=== PATIENT | female | born 1950 | race African-American/Black ===

== ENCOUNTER 2025-03-08 20:39 | Inpatient (IN) | payer MEDICARE, OTHER ==
[~2025-03-08] VITALS: Ht 157.5 cm; Wt 72.6 kg
[2025-03-08 21:41] LABS: CALCIUM, SERUM 9.3 mg/dL (8.5-10.1); CARBON DIOXIDE 26 mmol/L (21-32); CHLORIDE 104 mmol/L (98-107); CREATININE 1.4 mg/dL (0.6-1.3); GLUCOSE 99 mg/dL (74-106); POTASSIUM 4.5 mmol/L (3.5-5.1); SODIUM SERUM 139 mmol/L (136-145); UREA NITROGEN, BLOOD 18 mg/dL (7-18)
[2025-03-08 21:42] LABS: BASOPHILS # (AUTO) 0.1 K/uL (0.0-0.2); BASOPHILS % (AUTO) 1.9 % (0.0-2.0); EOSINOPHILS # (AUTO) 1.2 K/uL (0.0-0.7); EOSINOPHILS % (AUTO) 15.4 % (0.0-6.0); HEMATOCRIT 31 % (33-45); HEMOGLOBIN 9.5 g/dL (11.5-14.8); LYMPHOCYTES % (AUTO) 12.8 % (20.0-44.0); MEAN CORPUSCULAR HEMOGLOBIN 20 PG (26.0-33.0); MEAN CORPUSCULAR HGB CONC 30 g/dl (31.0-36.0); MEAN CORPUSCULAR VOLUME 65 fL (82-100); NEUTROPHILS # (AUTO) 4.4 K/uL (1.8-8.9); NEUTROPHILS % (AUTO) 56.9 % (43.0-81.0); PLATELET COUNT (AUTO) 341 K/uL (150-450); RED BLOOD CELL COUNT(AUTO) 4.82 MIL/uL (4.0-5.2); RED CELL DISTRIBUTION WIDTH 22.5 % (11.5-15.0); WHITE BLOOD COUNT (AUTO) 7.7 K/uL (4.3-11.0)
[2025-03-08 21:54] LABS: NT-PRO BNP 1018 pg/mL (0-125)
[2025-03-08 21:55] LABS: LACTIC ACID 4.6 mmol/L (0.4-2.0)
[2025-03-08] MEDS: VANCOMYCIN 1 GM in IV D5W 250 ML IV ONE (22:00)
[2025-03-08] MEDS: PIPERACILLIN /TAZOBACTAM 3.375 G in IV D5W 50 ML IV ONE (22:00)
[2025-03-08 22:06] LABS: BAND % (MANUAL) 0 % (0.0-5.0); NEUTROPHILS % (MANUAL) 73 (42-76)
[2025-03-08 22:07] LABS: BASOPHILS % (MANUAL) 0 % (0.0-2.0); EOSINOPHILS % (MANUAL) 12 % (0-4); LYMPHOCYTES % (MANUAL) 15 % (16-48); METAMYELOCYTES % 0 % (0-0); MONOCYTES % (MANUAL) 10 % (0-11.0)
[2025-03-08 22:09] LABS: ANISOCYTOSIS 3+; OVALOCYTES 1+; PLATELET ESTIMATE ADEQUATE
[2025-03-08] MEDS ORDERED: IOHEXOL-350 100 ML VIAL IV ONE (22:26)
[2025-03-08] MEDS ORDERED: CT SWABBABLE VALVE TRANS SET 1 EA INFUS.SET MC ONE (22:26)
[2025-03-08] MEDS ORDERED: IV NS 0.9% 250 ML IV ONE (22:26)
[2025-03-08 22:30] LABS: ABG BASE EXCESS -3.2 mmol/L (-2.0-3.0); ABG OXYGEN SATURATION 87.5 % (94.0-98.0); ABG PCO2 36.7 mmHg (32.0-45.0); ABG PH 7.384 (7.350-7.450); ABG PO2 58.5 mmHg (83.0-108.0); ABG TOTAL HEMOGLOBIN 10.4 G/dL (12.0-16.0); COHb 0.2 % (0.5-1.5); MetHb 0.6 % (0.0-1.5); O2Hb 86.8 % (94.0-97.0); SITE, ABG RIGHT BRACHIAL
[2025-03-08] MEDS: IV NS 0.9% 1,000 ML BAG IV ONE (22:30)
[2025-03-08] MEDS: ENOXAPARIN SODIUM 60 MG/0.6 ML DISP.SYRIN SQ ONE (22:30)
[2025-03-08] MEDS: ASPIRIN 300 MG/SUPP.RECT RC ONE (22:30)
[2025-03-09] MEDS ORDERED: ONDANSETRON HCL/PF 4 MG/2 ML VIAL IVP PRN
[2025-03-09] MEDS ORDERED: Z GUARD REMEDY 4 OZ OINT TP PRN
[2025-03-09 00:41] LABS: BILIRUBIN,DIRECT 0.2 mg/dL (0.0-0.2); BILIRUBIN,TOTAL 0.7 mg/dL (0.2-1.0)
[2025-03-09] MEDS ORDERED: ENOXAPARIN SODIUM 80 MG/0.8 ML DISP.SYRIN SQ ONE (00:55)
[2025-03-09 00:56] LABS: LACTIC ACID REFLEX 6.2 mmol/L (0.4-1.9)
[2025-03-09] MEDS ORDERED: ASPIRIN 300 MG/SUPP.RECT RC ONE (00:56)
[2025-03-09] MEDS ORDERED: FUROSEMIDE 40 MG TABLET PO ONE (01:00)
[2025-03-09 04:00] VITALS: BP 126/85; TEMP 97.7
[2025-03-09] MEDS ORDERED: FAMO40TA7 PO (07:55)
[2025-03-09] MEDS ORDERED: ATOR20TA PO (07:55)
[2025-03-09] MEDS ORDERED: ASPI-1169 PO (07:55)
[2025-03-09] MEDS ORDERED: OXYC5TAB3 PO (07:55)
[2025-03-09] MEDS ORDERED: ALBU18HF2 IH (07:55)
[2025-03-09] MEDS ORDERED: INSU100I43 SQ ×2 (07:55)
[2025-03-09] MEDS ORDERED: MYRBETRIQ PO (07:55)
[2025-03-09] MEDS ORDERED: MORP15TA PO (07:55)
[2025-03-09] MEDS ORDERED: LACT10SO69 PO (07:55)
[2025-03-09 08:00] VITALS: BP 112/75; TEMP 98.2
[2025-03-09] MEDS: ASPIRIN EC 81 MG TABLET.DR PO SCH (09:18)
[2025-03-09] MEDS: PANTOPRAZOLE 40 MG TABLET.DR PO SCH (09:18)
[2025-03-09] MEDS: ENOXAPARIN SODIUM 80 MG/0.8 ML DISP.SYRIN SQ SCH (09:21)
[2025-03-09] MEDS ORDERED: FUROSEMIDE 80 MG TABLET PO SCH (10:00)
[2025-03-09] MEDS ORDERED: NALOXONE HCL 0.4 MG/ML AMPUL IV PRN (11:30)
[2025-03-09] MEDS: FUROSEMIDE 40 MG/4 ML VIAL IV SCH (11:35)
[2025-03-09] MEDS: BLOOD SUGAR DIAGNOSTIC 1 EACH STRIP IN SCH (11:47)
[2025-03-09 11:55] LABS: BASOPHILS # (AUTO) 0.1 K/uL (0.0-0.2); BASOPHILS % (AUTO) 1.1 % (0.0-2.0); EOSINOPHILS % (AUTO) 12.7 % (0.0-6.0); HEMATOCRIT 30 % (33-45); HEMOGLOBIN 9.1 g/dL (11.5-14.8); LYMPHOCYTES # (AUTO) 0.5 K/uL (0.8-4.8); LYMPHOCYTES % (AUTO) 6.6 % (20.0-44.0); MEAN CORPUSCULAR HEMOGLOBIN 20 PG (26.0-33.0); MEAN CORPUSCULAR HGB CONC 30 g/dl (31.0-36.0); MEAN CORPUSCULAR VOLUME 65 fL (82-100); MONOCYTES # (AUTO) 0.9 K/uL (0.1-1.30); MONOCYTES % (AUTO) 11.1 % (2.0-12.0); NEUTROPHILS # (AUTO) 5.5 K/uL (1.8-8.9); NEUTROPHILS % (AUTO) 68.5 % (43.0-81.0); PLATELET COUNT (AUTO) 285 K/uL (150-450); RED BLOOD CELL COUNT(AUTO) 4.64 MIL/uL (4.0-5.2); RED CELL DISTRIBUTION WIDTH 22.7 % (11.5-15.0)
[2025-03-09 12:00] VITALS: BP 121/79; TEMP 98
[2025-03-09] MEDS ORDERED: DEXTROSE 50%-WATER 50 ML DISP.SYRIN IV PRN (12:00)
[2025-03-09 12:02] LABS: APPEARANCE,URINE CLEAR (CLEAR); BILIRUBIN,URINE NEGATIVE (NEGATIVE); BLOOD, URINE NEGATIVE Ery/uL (NEGATIVE); COLOR,URINE YELLOW (YELLOW); KETONES,URINE NEGATIVE (NEGATIVE); LEUKOCYTE ESTERASE ,URINE NEGATIVE (NEGATIVE); NITRITE, URINE NEGATIVE (NEGATIVE); PROTEIN,URINE NEGATIVE (NEGATIVE); UGLUCOSE NEGATIVE (NEGATIVE)
[2025-03-09] MEDS: INSULIN REGULAR, HUMAN 100 UNIT/ML 3 ML VIAL SQ PRN (12:04)
[2025-03-09] MEDS: CEFEPIME 2 GM in IV D5W 100 ML IV SCH (12:08)
[2025-03-09 12:09] LABS: CALCIUM, SERUM 8.9 mg/dL (8.5-10.1); CREATININE 1.2 mg/dL (0.6-1.3); MAGNESIUM 1.8 mg/dL (1.8-2.4); PHOSPHORUS 3.3 mg/dL (2.5-4.9); POTASSIUM 4.7 mmol/L (3.5-5.1)
[2025-03-09 12:20] LABS: CREATININE, URINE 109.4 MG/DL (30.0-125.0); URINE TOTAL PROTEIN 24.5 mg/dL (0-11.9)
[2025-03-09 12:39] LABS: THYROID STIMULATING HORMONE 1.18 uIU/mL (0.358-3.74)
[2025-03-09] MEDS: VANCOMYCIN 1 GM in IV D5W 250ml IV ONE (12:46)
[2025-03-09 13:28] LABS: ADD URINE CULTURE YES; BACTERIA,URINE Moderate /HPF (None Seen); RBC,URINE 0-2 /HPF (0-2); SQUAMOUS EPITHELIAL CELL,UR Many /HPF (None Seen)
[2025-03-09 13:30] LABS: EOSINOPHIL,URINE None Seen
[2025-03-09] MEDS: VANCOMYCIN 750 MG in IV D5W 250 ML IV ONE (14:01)
[2025-03-09 14:02] LABS: PLATELET ESTIMATE ADEQUATE
[2025-03-09 14:13] LABS: ANISOCYTOSIS 1+; EOSINOPHILS % (MANUAL) 7 % (0-4); LYMPHOCYTES % (MANUAL) 13 % (16-48); MONOCYTES % (MANUAL) 8 % (0-11.0); NEUTROPHILS % (MANUAL) 72 (42-76)
[2025-03-09 14:14] LABS: OVALOCYTES FEW
[2025-03-09 16:00] VITALS: BP 132/72; TEMP 98
[2025-03-09] MEDS: FIXODENT PO ONE (17:17)
[2025-03-09] MEDS: oxyCODONE HCL SR 10MG TAB.SR.12H PO PRN (17:18)
[2025-03-09] MEDS: LACTULOSE 10 G/15 ML UDC (PYXIS) PO SCH (17:18)
[2025-03-09 21:09] VITALS: BP 115/57; TEMP 98.4; O2SAT 95
[2025-03-09] MEDS: ATORVASTATIN 10 MG TABLET PO SCH (21:28)
[2025-03-09] MEDS ORDERED: IV NS 0.9% 250 ML IV ONE (21:55)
[2025-03-09] MEDS ORDERED: IOHEXOL-350 100 ML VIAL IV ONE (21:55)
[2025-03-09] MEDS ORDERED: CT SWABBABLE VALVE TRANS SET 1 EA INFUS.SET MC ONE (21:55)
[2025-03-09 23:53] VITALS: BP 115/57; TEMP 98.4; O2SAT 94
[2025-03-10] VITALS (8 sets, daily range): BP systolic 104–120; BP diastolic 66–76; TEMP 98–98.8; O2SAT 92–98
[2025-03-10] MEDS: ACETAMINOPHEN 325 MG TABLET PO PRN (04:51)
[2025-03-10] MEDS: ESCITALOPRAM OXALATE (10 MG) 10 MG TABLET PO SCH (08:25)
[2025-03-10] MEDS: FAMOTIDINE (20 MG) 20 MG TABLET PO SCH (08:26)
[2025-03-10] MEDS: FUROSEMIDE 40 MG TABLET PO SCH (08:26)
[2025-03-10] MEDS ORDERED: ASPIRIN 81 MG TAB.CHEW PO SCH (09:00)
[2025-03-10] MEDS: CEFEPIME 2 GM in IV D5W 100 ML IV SCH (10:06)
[2025-03-10 10:44] LABS: ALBUMIN 2.1 g/dL (3.4-5.0); BILIRUBIN,TOTAL 0.8 mg/dL (0.2-1.0); CALCIUM, SERUM 8.8 mg/dL (8.5-10.1); CREATININE 1.2 mg/dL (0.6-1.3); MAGNESIUM 1.9 mg/dL (1.8-2.4); PHOSPHORUS 3.4 mg/dL (2.5-4.9); POTASSIUM 3.8 mmol/L (3.5-5.1)
[2025-03-10 10:50] LABS: BASOPHILS # (AUTO) 0.1 K/uL (0.0-0.2); BASOPHILS % (AUTO) 1.2 % (0.0-2.0); EOSINOPHILS # (AUTO) 1.2 K/uL (0.0-0.7); EOSINOPHILS % (AUTO) 15.6 % (0.0-6.0); HEMATOCRIT 30 % (33-45); HEMOGLOBIN 9.1 g/dL (11.5-14.8); LYMPHOCYTES # (AUTO) 0.9 K/uL (0.8-4.8); LYMPHOCYTES % (AUTO) 11.9 % (20.0-44.0); MEAN CORPUSCULAR HEMOGLOBIN 20 PG (26.0-33.0); MEAN CORPUSCULAR HGB CONC 30 g/dl (31.0-36.0); MEAN CORPUSCULAR VOLUME 64 fL (82-100); MONOCYTES % (AUTO) 12.9 % (2.0-12.0); NEUTROPHILS # (AUTO) 4.4 K/uL (1.8-8.9); NEUTROPHILS % (AUTO) 58.4 % (43.0-81.0); PLATELET COUNT (AUTO) 302 K/uL (150-450); RED BLOOD CELL COUNT(AUTO) 4.65 MIL/uL (4.0-5.2); RED CELL DISTRIBUTION WIDTH 23.1 % (11.5-15.0); WHITE BLOOD COUNT (AUTO) 7.5 K/uL (4.3-11.0)
[2025-03-10] MEDS: APIXABAN 5 MG TABLET PO SCH (11:00)
[2025-03-10] MEDS: VANCOMYCIN 1 GM in IV D5W 250ml IV SCH (12:27)
[2025-03-10] MEDS: SOD FERRIC GLUC 125 MG in IV NS 0.9% 100 ML IV SCH (14:11)
[2025-03-10 14:18] LABS: ANISOCYTOSIS 1+; EOSINOPHILS % (MANUAL) 14 % (0-4); LYMPHOCYTES % (MANUAL) 6 % (16-48); MONOCYTES % (MANUAL) 5 % (0-11.0); NEUTROPHILS % (MANUAL) 75 (42-76); OVALOCYTES 1+; PLATELET ESTIMATE ADEQUATE
[2025-03-11] VITALS: BP 118/92; TEMP 98.2; O2SAT 96
[2025-03-11 04:00] VITALS: BP 115/78; TEMP 98.1; O2SAT 94
[2025-03-11 08:00] VITALS: BP 102/64; TEMP 97.9; O2SAT 100
[2025-03-11 11:44] LABS: CALCIUM, SERUM 8.4 mg/dL (8.5-10.1); CREATININE 1.3 mg/dL (0.6-1.3); POTASSIUM 4.3 mmol/L (3.5-5.1)
[2025-03-11 12:00] VITALS: BP 115/85; TEMP 97.7; O2SAT 96
[2025-03-11 16:00] VITALS: BP 119/75; TEMP 97.8; O2SAT 94
[2025-03-11 20:00] VITALS: BP 125/74; TEMP 98.1; O2SAT 95
[2025-03-12] VITALS: BP 93/54; TEMP 97.5; O2SAT 95
[2025-03-12 04:00] VITALS: BP 99/70; TEMP 98.2; O2SAT 95
[2025-03-12 07:46] LABS: CALCIUM, SERUM 8.4 mg/dL (8.5-10.1); CREATININE 1.1 mg/dL (0.6-1.3); POTASSIUM 3.8 mmol/L (3.5-5.1)
[2025-03-12 08:00] VITALS: BP 121/71; TEMP 98.8; O2SAT 100
[2025-03-12 08:10] LABS: PTH, INTACT 22 pg/mL (15-65)
[2025-03-12] MEDS: VANCOMYCIN HCL 1.25 GM in IV D5W 250 ML IV SCH (10:35)
[2025-03-12] MEDS ORDERED: FIXODENT DENTURE ADHESIVE CREAM TUBE MM PRN (14:30)
[2025-03-12 16:00] VITALS: BP 122/71; TEMP 98.6; O2SAT 100
[2025-03-12 20:00] VITALS: BP 116/75; TEMP 97.7; O2SAT 92
[2025-03-13 04:00] VITALS: BP 107/78; TEMP 97.9; O2SAT 93
[2025-03-13 08:00] VITALS: BP 128/75; TEMP 99; O2SAT 95
[2025-03-13] MEDS: HYDROCODONE/APAP 5/325MG TABLET PO PRN (08:44)
[2025-03-13 09:18] LABS: CALCIUM, SERUM 8.6 mg/dL (8.5-10.1); CREATININE 1.2 mg/dL (0.6-1.3); POTASSIUM 3.7 mmol/L (3.5-5.1)
[2025-03-13 11:31] VITALS: O2SAT 91
[2025-03-13] MEDS: IPRATROPIUM NEB FS 0.5 MG/2.5 ML AMPUL.NEB NEB PRN (11:31)
[2025-03-13] MEDS: ALBUTEROL FS 2.5 MG/3 ML VIAL.NEB NEB PRN (11:31)
[2025-03-13 11:41] VITALS: O2SAT 93
[2025-03-17] MEDS ORDERED: APIXABAN 5 MG TABLET PO SCH (09:00)
== END 2025-03-13 16:33 | DRG 280 ==
LOC: ER 20:49 → TELE1 03-09 02:03 → MEDSG1 03-12 10:33
PROVIDERS: ADMIT Nurse Practitioner Family; ATTEND Nurse Practitioner Acute Care
DX: I13.0 Hypertensive heart and chronic kidney disease with heart failure and stage 1 through stage 4 chronic kidney disease, or unspecified chronic kidney disease (principal); I50.33 Acute on chronic diastolic (congestive) heart failure; I21.A1 Myocardial infarction type 2; J15.9 Unspecified bacterial pneumonia; N17.0 Acute kidney failure with tubular necrosis; J96.21 Acute and chronic respiratory failure with hypoxia; I82.622 Acute embolism and thrombosis of deep veins of left upper extremity; D68.59 Other primary thrombophilia; E87.20 Acidosis, unspecified; I69.351 Hemiplegia and hemiparesis following cerebral infarction affecting right dominant side; F32.2 Major depressive disorder, single episode, severe without psychotic features; J44.0 Chronic obstructive pulmonary disease with (acute) lower respiratory infection; J44.1 Chronic obstructive pulmonary disease with (acute) exacerbation; C79.51 Secondary malignant neoplasm of bone; C78.02 Secondary malignant neoplasm of left lung; C78.01 Secondary malignant neoplasm of right lung; D50.9 Iron deficiency anemia, unspecified; E78.5 Hyperlipidemia, unspecified; Z87.891 Personal history of nicotine dependence; J44.9 Chronic obstructive pulmonary disease, unspecified; D63.8 Anemia in other chronic diseases classified elsewhere; N18.9 Chronic kidney disease, unspecified; Z74.09 Other reduced mobility; N32.81 Overactive bladder; K76.82 Hepatic encephalopathy; K74.60 Unspecified cirrhosis of liver; H54.8 Legal blindness, as defined in USA; J84.10 Pulmonary fibrosis, unspecified; E83.9 Disorder of mineral metabolism, unspecified; Z85.3 Personal history of malignant neoplasm of breast; E11.22 Type 2 diabetes mellitus with diabetic chronic kidney disease; Z90.12 Acquired absence of left breast and nipple; Z79.4 Long term (current) use of insulin; Z51.5 Encounter for palliative care
CPT/HCPCS: 36415; 36600; 71045-TC; 76770-TC; 80048-TC; 80053-TC; 80061-TC; 80202-TC; 81001; 82140-TC; 82247-TC; 82248-TC; 82550-TC; 82570-TC; 82728-TC; 82803-TC; 82962-TC; 83540-TC; 83605-TC; 83735-TC; 83880; 83970; 84100-TC; 84155; 84165; 84300-TC; 84443-TC; 84484-TC; 85025-TC; 85378-TC; 87040-TC; 87081-TC; 87086-TC; 93307-TC; 93970-TC; 93971-TC; 94799-TC; 97110-TC; 97116-TC; 97530-TC; A4223; A6253; A6403; G0378; J0692; J1650; J1815; J1938; J2543; J2916; J3370; J3371; J7030; J7040; J7050; J7060; Q9967